=== PATIENT | female | born 1995 | race Caucasian/White ===

== ENCOUNTER 2023-11-20 17:36 | Emergency (ER) | payer OTHER ==
[2023-11-20 18:45] LABS: Absolute Eosinophils 0.2 K/uL (0-0.5); Absolute Lymphocytes (CBC) 3.5 K/uL (0.7-4.9); Absolute Monocytes 0.9 K/uL (0.1-1.3); Absolute Neutrophil 9.7 K/uL (1.8-8.0); Basophils % 0.2 % (0-1.3); Eosinophils % 1.3 % (0-4.4); Hematocrit 43.9 % (36.0-45.0); Hemoglobin 15.2 g/dL (12.0-15.0); Lymphocytes % 24.3 % (15.3-44.8); MCH 30.4 pg (27.0-35.0); MCHC 34.6 g/dL (32.0-36.0); MCV 87.7 fL (80-100); MPV 8.9 fL (7.6-11.3); Monocytes % 6.2 % (3.3-12.3); Nucleated Red Blood Cells % 0.1 % (0-0); Platelets 242 thou/uL (152-406)
--- NOTE | 2023-11-20 18:49 | RAD REPORT ---
EXAM DESCRIPTION: CT - CTFB CLINICAL HISTORY: SWELLING; SINUS PAIN COMPARISON: No comparisons TECHNIQUE: Axial 2 mm thick images of the face were obtained with sagittal and coronal reconstructio n images. All CT scans are performed using dose optimization technique as appropriate and may include automated exposure control or mA/KV adjustment according to patient size. FINDINGS: No acute facial bone fracture is seen.The mandible is intact. The globes and orbital contents are grossly unremarkable.The paranasal sinuses and mastoids are clear . Rightward nasal septal deviation. IMPRESSION: Negative for facial bone fracture.No source of facial pain identified. Paranasal sinuses are well aerated.
[2023-11-20 18:58] LABS: ALT/SGPT 18 U/L (13-56); Albumin 3.2 g/dL (3.4-5.0); Albumin/Globulin Ratio 1.1 (1.1-1.8); Alkaline Phosphatase 45 U/L (45-117); Anion Gap 4.4 mEq/L (5.0-15.0); BUN Blood Urea Nitrogen 10 mg/dL (7-18); Bicarbonate 31 mEq/L (21-32); Bilirubin Total 0.3 mg/dL (0.2-1.0); Glomerular Filtration Rate 73 ml/min (=/>90); Glucose Level 96 mg/dL (74-106); Potassium 3.4 mEq/L (3.5-5.1); Protein, Total 6.2 g/dL (6.4-8.2); Sodium Level 139 mEq/L (136-145)
[2023-11-20 18:59] LABS: AST/SGOT < 4 U/L (15-37)
[2023-11-20] MEDS ORDERED: KETOROLAC 30 MG/ML INJ ONE (19:12)
[2023-11-20 19:25] LABS: Specific Gravity 1.005 (1.005-1.030)
[2023-11-20 19:27] LABS: Specific Gravity 1.005 (1.005-1.030); Sqamous Epithelial <5 /HPF (None Seen); Urine Bacteria <20 /HPF (<20); Urine Bilirubin NEGATIVE (Negative); Urine Blood Negative (Negative); Urine Clarity Clear (Clear); Urine Color Colorless (Yellow); Urine Culture Reflex Order NOT NEEDED; Urine Glucose NEGATIVE (Negative); Urine Ketones NEGATIVE (Negative); Urine Micro Reflex YN NO BILL MICROSCOPIC; Urine Nitrite NEGATIVE (Negative); Urine Protein NEGATIVE (Negative); Urine RBC <5 /HPF (None Seen); Urine Urobilinogen Normal (Normal); Urine WBC <5 /HPF (<5)
[2023-11-20] MEDS ORDERED: DIPHENHYDRAMINE 50 MG/ML VIAL ONE (20:05)
[2023-11-20] MEDS ORDERED: METHYLPREDNISOLONE 125 MG INJ ONE (20:05)
[2023-11-20] MEDS ORDERED: FAMOTIDINE 20 MG/2 ML VIAL IV ONE (20:06)
--- NOTE | 2023-11-20 20:37 | EDPHYS ---
Physician Documentation [facility] Name: Clare Ng Age: 28 yrs Sex: Female : 1995 Arrival Date: 11/20/2023 Time: 17:36 Bed 18 Private MD: ED Physician Radha Maza HPI: 11/19 18:00 This 28 yrs old Female presents to ER via Ambulatory with complaints of Sinus Pain. cp 18:00 The patient or guardian reports nasal congestion, sinus pressure. Onset: The cp symptoms/episode began/occurred 1 month(s) ago. Severity of symptoms: in the emergency department the symptoms are actually worse. Associated signs and symptoms: Pertinent negatives: fever, sore throat, vomiting. 18:00 Patient is a 28-year-old female with no significant past medical history who presents cp to the emergency department with complaints of persistent sinus pressure, congestion, pain that is been going on for about the past month. Patient reports she is on her third round of antibiotics and currently taking Augmentin. She is taking a course of steroids with some improvement but symptoms have and now seem worse. No fevers. Patient reports she has an upcoming appointment with ENT but feels like she cannot wait. Historical: - Allergies: 17:46 Adhesives; aa5 - PMHx: 17:46 None; aa5 - PSHx: 17:46 Tonsillectomy; right hand; left ankle; nose tubes; aa5 - Immunization history:: Adult Immunizations unknown. - Infectious Disease History:: Denies. - Social history:: Smoking status: Reported history of juuling and/or vaping. ROS: 18:05 Constitutional: Negative for body aches, chills, fever, poor PO intake, cp 18:05 ENT: Positive for sinus pain, cp 18:05 Cardiovascular: Negative for chest pain, edema, palpitations, 18:05 Respiratory: Negative for shortness of breath, wheezing, 18:05 Abdomen/GI: Negative for abdominal pain, nausea, vomiting, and diarrhea, 18:05 Neuro: Positive for headache, 18:05 All other systems are negative, Exam: 18:10 Constitutional: The patient appears in no acute distress, alert, awake, non-toxic, well cp developed, well nourished, anxious, uncomfortable, animated 18:10 Head/face: Sinus tenderness, that is marked, is located over the right frontal sinus, cp left frontal sinus, right maxillary sinus and left maxillary sinus, 18:10 Eyes: Periorbital structures: appear normal, Conjunctiva: normal, no exudate, no injection, Sclera: no appreciated abnormality, Lids and lashes: appear normal, bilaterally, 18:10 ENT: External ear(s): are unremarkable, Ear canal(s): are normal, clear, TM's: dullness, bilaterally, Nose: is normal, Mouth: Lips: moist, Oral mucosa: pink and intact, moist, Posterior pharynx: is normal, airway is patent, no erythema, no exudate, 18:10 Neck: ROM/movement: is normal, is supple, without pain, no range of motions limitations, no meningismus, no nuchal rigidity, 18:10 Chest/axilla: Inspection: normal, 18:10 Cardiovascular: Rate: normal, Rhythm: regular, 18:10 Respiratory: the patient does not display signs of respiratory distress, Respirations: normal, no use of accessory muscles, no retractions, labored breathing, is not present, Breath sounds: are clear throughout, no decreased breath sounds, no stridor, no wheezing, 18:10 Abdomen/GI: Exam negative for discomfort, distension, guarding, Inspection: abdomen appears normal, 18:10 Skin: cellulitis, is not appreciated, no rash present. Vital Signs: 17:45 BP 148 / 102; Pulse 92; Resp 18 S; Temp 98.5(O); Pulse Ox 100% on R/A; Weight 67.59 kg aa5 (R); Height 5 ft. 2 in. (R); 20:42 BP 133 / 89; Pulse 81; Resp 19 S; Temp 98.6; Pulse Ox 100% ; lg3 17:45 Body Mass Index 27.25 (67.59 kg, 157.48 cm) aa5 MDM: 17:53 Patient medically screened. cp 20:35 Data reviewed: vital signs, nurses notes, lab test result(s), radiologic studies, CT cp scan, and as a result, I will discharge patient. 20:35 Differential Diagnosis: Other sinusitis, mastoiditis, sepsis. I considered the cp following discharge prescriptions or medication management in the emergency department Medications were administered in the Emergency Department. See MAR. Counseling: I had a detailed discussion with the patient and/or guardian regarding the historical points, exam findings, and any diagnostic results supporting the discharge/admit diagnosis, lab results, radiology results, the need for outpatient follow up, an ENT specialist, to return to the emergency department if symptoms worsen or persist or if there are any questions or concerns that arise at home. Response to treatment: the patient's symptoms have markedly improved after treatment, and as a result, I will discharge patient. 11/19 18:39 Order name: Comprehensive Metabolic Panel [facility] 11/19 18:39 Order name: Lactate w/ 2H reflex if indic. EDMN 11/19 18:39 Order name: CBC with Automated Diff [facility] 11/19 18:48 Order name: CBC with Automated Diff; Complete Time: 19:05 [facility] 11/19 19:05 Interpretation: Normal except: HGB 15.2; RBC 5.00; WBC 14.30; NEUT A 9.7. 11/19 18:59 Order name: Lactate w/ 2H reflex if indic.; Complete Time: 19:05 [facility] 11/19 20:01 Interpretation: Reviewed. 11/19 18:59 Order name: Comprehensive Metabolic Panel; Complete Time: 19:05 [facility] 11/19 19:52 Interpretation: Normal except: K 3.4; ANION GAP 4.4; CRE 1.05; GFR 73; AST < 4; CA 8.4; cp TP 6.2; ALB 3.2. 11/19 19:19 Order name: Urinalysis W/Microscopic [facility] 11/19 19:19 Order name: Test, Urine [facility] 11/19 19:23 Order name: Test, Urine; Complete Time: 19:52 [facility] 11/19 19:52 Interpretation: Reviewed. 11/19 19:27 Order name: Urinalysis W/Microscopic; Complete Time: 19:52 [facility] 11/19 19:52 Interpretation: Reviewed. 11/19 18:07 Order name: Facial Bones W/ Mpr [facility] 11/19 18:49 Order name: CT; Complete Time: 19:05 [facility] 11/19 17:57 Order name: Cardiac monitoring; Complete Time: 18:39 11/19 17:57 Order name: IV Saline Lock - Large Bore; Complete Time: 18:39 11/19 17:57 Order name: Labs collected and sent; Complete Time: 18:39 cp 11/19 17:57 Order name: O2 Per Protocol; Complete Time: 18:39 cp 11/19 17:57 Order name: O2 Sat Monitoring; Complete Time: 18:39 cp 11/19 17:57 Order name: Vital Signs; Complete Time: 18:39 cp Administered Medications: 19:20 Drug: Ketorolac IVP 15 mg IVP once Route: IVP; Site: right antecubital; db 20:12 Follow up: Response: No adverse reaction; Marked relief of symptoms lg3 20:12 Drug: MethylPrednisoLONE IVP 125 mg IVP once Route: IVP; Site: right antecubital; lg3 20:12 Drug: diphenhydrAMINE IVP 50 mg IVP once Route: IVP; Site: right antecubital; lg3 20:12 Drug: Famotidine IVP 20 mg IVP once; dilute with 10 mL 0.9% NaCl; give over 2 minutes lg3 Route: IVP; Site: right antecubital; Disposition Summary: 11/20/23 20:37 Discharge Ordered Notes: Location: Home cp Problem: an ongoing problem cp Symptoms: have improved cp Condition: Stable cp Diagnosis - Atypical facial pain cp Followup: cp - With: Mira Rodrigues MD - When: as scheduled - Reason: Recheck today's complaints Discharge Instructions: - Discharge Summary Sheet cp - General Headache Without Cause cp - Sinus Headache cp Forms: - Medication Reconciliation Form cp - Antibiotic Education cp - Prescription Opioid Use cp - Patient Portal Instructions cp - Leadership Thank You Letter cp Prescriptions: - Diclofenac Sodium 75 mg Oral Tablet Sustained Release - take 1 tablet ORAL route 2 times per day; 30 tablet; Refills: 0, Product cp Selection Permitted - Prednisone 20 mg Oral tablet - take 2 tablets ORAL route once daily for 5 days then take 1 tablet daily for 3 cp days and then 1/2 tablet daily for 2 days; 14 tablet; Refills: 0, Product Selection Permitted Signatures: Dispatcher [employer] Elsi Garcia RN RN aa5 Simone Manriquez PA PA cp Able, Lacie, RN RN lg3 Ebonie Garcia RN RN db Corrections: (The following items were deleted from the chart) 17:47 17:46 Allergies: No Known Allergies; naveed5 aa5 17:57 17:57 CBC+H.LAB.BRZ ordered. EDMS EDMS 17:57 17:57 COMPREHENSIVE METABOLIC PANEL+C.LAB.BRZ ordered. EDMS EDMS 17:57 17:57 LACTATE+C.LAB.BRZ ordered. EDMS EDMS 17:57 17:57 Facial Bones W/ Con \T\ MPR+CT.RAD.BRZ ordered. EDMS EDMS 18:05 18:05 Facial Bones W Con ordered. EDMS EDMS 18:11 17:57 Accucheck ordered. cp cp
--- NOTE | 2023-11-20 20:37 | ER ---
Nurse's Notes [facility] Name: Clare Ng Age: 28 yrs Sex: Female : 1995 Arrival Date: 11/20/2023 Time: 17:36 Bed 18 Private MD: Diagnosis: Atypical facial pain Presentation: 11/19 17:45 Chief complaint: Patient states: nasal congestion x 1 month ago, sinus pressure. aa5 17:45 Coronavirus screen: congestion. Ebola Screen: Patient denies travel to an [facility]-affected area in the 21 days before illness onset. Initial Sepsis Screen: Does the patient meet any 2 criteria? HR > 90 bpm. Does the patient have a suspected source of infection? No. Patient's initial sepsis screen is negative. Risk Assessment: Do you want to hurt yourself or someone else? Patient reports no desire to harm self or others. Onset of symptoms was 2023. 17:45 Acuity: JM 3 aa5 17:45 Method Of Arrival: Ambulatory aa Historical: - Allergies: 17:46 Adhesives; aa5 - PMHx: 17:46 None; aa5 - PSHx: 17:46 Tonsillectomy; right hand; left ankle; nose tubes; aa5 - Immunization history:: Adult Immunizations unknown. - Infectious Disease History:: Denies. - Social history:: Smoking status: Reported history of juuling and/or vaping. Screenin:25 [facility] ED Fall Risk Assessment (Adult) History of falling in the last 3 months, db including since admission No falls in past 3 months (0 pts) Confusion or Disorientation No (0 pts) Intoxicated or Sedated No (0 pts) Impaired Gait No (0 pts) Mobility Assist Device Used No (0 pt) Altered Elimination No (0 pt) Score/Fall Risk Level 0 - 2 = Low Risk Oriented to surroundings, Maintained a safe environment. Abuse screen: Denies threats or abuse. Denies injuries from another. Nutritional screening: No deficits noted. Tuberculosis screening: No symptoms or risk factors identified. Assessment: 18:25 Reassessment: Patient appears in no apparent distress at this time. Patient and/or db family updated on plan of care and expected duration. Pain level reassessed. Patient is alert, oriented x 3, equal unlabored respirations, skin warm/dry/pink. General: Appears in no apparent distress. uncomfortable, Behavior is calm, cooperative. Pain: Complains of pain in face and left eye. Neuro: Level of Consciousness is awake, alert, obeys commands, Oriented to person, place, time, situation. Respiratory: Airway is patent Respiratory effort is even, unlabored, Respiratory pattern is regular, symmetrical. EENT: Reports LEFT FACIAL PAIN NOTED SWELLING TO LEFT EYE. 19:24 Reassessment: Patient appears in no apparent distress at this time. No changes from lg3 previously documented assessment. Patient and/or family updated on plan of care and expected duration. Pain level reassessed. Patient is alert, oriented x 3, equal unlabored respirations, skin warm/dry/pink. Pain: Complains of pain in left eye and face. 20:41 Reassessment: Patient appears in no apparent distress at this time. Patient and/or lg3 family updated on plan of care and expected duration. Pain level reassessed. Patient is alert, oriented x 3, equal unlabored respirations, skin warm/dry/pink. Patient states feeling better. Patient states symptoms have improved. Vital Signs: 17:45 BP 148 / 102; Pulse 92; Resp 18 S; Temp 98.5(O); Pulse Ox 100% on R/A; Weight 67.59 kg aa5 (R); Height 5 ft. 2 in. (R); 20:42 BP 133 / 89; Pulse 81; Resp 19 S; Temp 98.6; Pulse Ox 100% ; lg3 17:45 Body Mass Index 27.25 (67.59 kg, 157.48 cm) aa5 ED Course: 17:38 Patient arrived in ED. rg4 17:38 Simone Manriquez PA is PHCP. cp 17:38 Radha Maza MD is Attending Physician. cp 17:45 Arm band placed on. aa5 17:49 Triage completed. aa5 17:56 Ebonie Garcia, RN is Primary Nurse. db 18:25 Patient has correct armband on for positive identification. Bed in low position. Call db light in reach. Side rails up X 1. Provided Education on: LABS AND RADIOLOGY. Pulse ox on. NIBP on. 18:25 No provider procedures requiring assistance completed. db 18:30 Initial lab(s) drawn, by me, sent to lab. Inserted saline lock: 20 gauge in right db antecubital area, using aseptic technique. Blood collected. 18:[address] via wheelchair. db 18:42 Facial Bones W/ Mpr In Process Unspecified. EDMS 19:17 Report given to SALLIE BERNARD. db 19:24 Report received from SALLIE Loomis. Door closed. Noise minimized. Warm blanket given. lg3 19:24 Family accompanied patient. lg3 19:26 Urinalysis W/Microscopic Sent. lg3 19:26 Test, Urine Sent. lg3 20:35 Mira Rodrigues MD is Referral Physician. cp 20:43 IV discontinued, intact, bleeding controlled, No redness/swelling at site. Pressure lg3 dressing applied. Administered Medications: 19:20 Drug: Ketorolac IVP 15 mg IVP once Route: IVP; Site: right antecubital; db 20:12 Follow up: Response: No adverse reaction; Marked relief of symptoms lg3 20:12 Drug: MethylPrednisoLONE IVP 125 mg IVP once Route: IVP; Site: right antecubital; lg3 20:12 Drug: diphenhydrAMINE IVP 50 mg IVP once Route: IVP; Site: right antecubital; lg3 20:12 Drug: Famotidine IVP 20 mg IVP once; dilute with 10 mL 0.9% NaCl; give over 2 minutes lg3 Route: IVP; Site: right antecubital; Medication: 18:25 VIS not applicable for this client. db Outcome: 20:37 Discharge ordered by MD. cp 20:42 Discharged to home ambulatory, with significant other, lg3 20:42 Condition: stable 20:42 Discharge instructions given to patient, Instructed on discharge instructions, follow up and referral plans. medication usage, Demonstrated understanding of instructions, follow-up care, medications, Prescriptions given X 2, 20:43 Patient left the ED. lg3 Signatures: Dispatcher [employer] EDMS Elsi Bailey RN RN aa5 Simone Manriquez PA PA cp Paloma Sanders rg4 Yoan Wynne Lacie, RN RN lg3 Ebonie Garcia RN RN db Corrections: (The following items were deleted from the chart) 17:47 17:46 Allergies: No Known Allergies; aa5 aa5 18:05 18:03 Radiology exam delayed due to IV insertion attempt and/or patient not having nj appropriate IV at this time. nj 18:05 18:03 Radiology exam delayed due to lab results not completed at this time. nj (BUN/Creatinine) nj
[2023-11-21 14:54] VITALS: BP 133/89; TEMP 98.6; O2SAT 100
== END 2023-11-20 20:43 | disposition home or self-care (01) ==
LOC: ER 17:36
DX: G50.1 Atypical facial pain (principal); Z91.048 Other nonmedicinal substance allergy status
CPT/HCPCS: 85025; 81001; 36415; 81025; 83605; 80053; 70486; 76377; 96375; 96374; 99285; J1200; J2919